=== PATIENT | male | born 1940 | race Caucasian/White ===

== ENCOUNTER 2016-11-13 08:37 | Day surgery (SDC) | payer BC, MEDICARE ==
[~2016-11-13 08:37] MED LIST: Acetaminophen TAB* 325 MG PO PRN; Buffered Lidocaine 0.9% SYRIN* 5 ML/SYR SYRINGE INTRADERM ONE; Ketorolac 0.5% OPHTH (NF) 0.5 % 5 ML BTL ONE
[2016-11-13] MEDS ORDERED: Buffered Lidocaine 0.9% SYRIN* 5 ML/SYR SYRINGE ONE (08:38)
[2016-11-13] MEDS ORDERED: Lidocaine 1% MPF* 2 ML VIAL ONE (08:38)
[2016-11-13] MEDS ORDERED: Povidone Iodine 5% OPTH* 30 ML BTL ONE (08:38)
[2016-11-13] MEDS ORDERED: Proparacaine 0.5% OPHTH.SOL* 15 ML BTL ONE (08:38)
[2016-11-13] MEDS ORDERED: Phenylephrine 2.5% OPTH.SOL* 2 ML BTL ONE (08:38)
[2016-11-13] MEDS ORDERED: Cyclopentolate 1% OPTH.SOL* 2 ML BTL ONE (08:38)
[2016-11-13] MEDS ORDERED: Neomycin/Polymy/Dex OPTH.SUSP* MAXITROL 0.1% 5 ML ONE (08:38)
[2016-11-13] MEDS ORDERED: acetaZOLAMIDE TAB* 250 MG ONE (08:38)
[2016-11-13] MEDS ORDERED: Midazolam* 1 MG/ML 2 ML VIAL (2 MG) ONE (10:27)
[2016-11-13 11:30] VITALS: BP 105/66
--- NOTE | 2016-11-13 11:44 | OP ---
DATE OF OPERATION: 11/13/2016. DATE OF : 1940. SURGEON: Jose Alejandro Peng M.D. PREOPERATIVE DIAGNOSIS: Cataract left eye. POSTOPERATIVE DIAGNOSIS: Cataract left eye. OPERATIVE PROCEDURE: Phacoemulsification left eye with IOL. PROCEDURE: The patient was brought to the operating room after being given 1/2% Alcaine with epinep hrine drops in the preoperative area. The eye was prepped and draped in the usual sterile fashion. Sterile drape and eyelid speculum were placed. Again, topical 1/2% Alcaine with epinephrine was gi radha. A paracentesis incision was made at the 3 o'clock position with the No.75 blade. Clear cornea incision 2.2 x 2.2-mm was created at the 6 o'clock position starting at the anterior limbus using t he 2.2-mm keratome. The anterior chamber was irrigated with 0.4 mL of 1% non-preservative intracame ral lidocaine and filled with DisCoVisc. A capsulorrhexis was completed using the cystotome and the Utrata forceps. Hydrodissection was performed with balanced salt solution. The lens nucleus was re moved with the Phacoemulsification handpiece without incident. Cortex was removed with the irrigati on-aspiration handpiece. The capsular bag was re-inflated using DisCoVisc and an [id number] implant was inserted with the shooter. The irrigation-aspiration handpiece was used to remove all residual DisCoVisc. The eye was refilled with balanced salt solution and the wound checked and found to be w atertight. Topical Maxitrol drops were given. [id number]/[facility] #: [id number]
== END 2016-11-13 11:38 | disposition home or self-care (01) ==
LOC: OREAST 08:37
PROVIDERS: ATTEND Specialist
DX: H25.12 Age-related nuclear cataract, left eye (principal); H43.813 Vitreous degeneration, bilateral; Z87.891 Personal history of nicotine dependence; J44.9 Chronic obstructive pulmonary disease, unspecified
CPT/HCPCS: A9270-GY; J2250; V2632

== ENCOUNTER 2016-11-18 09:15 | Day surgery (SDC) | payer BC, MEDICARE ==
[~2016-11-18 09:15] MED LIST changes: -Ketorolac 0.5% OPHTH (NF) 0.5 % 5 ML BTL ONE
[2016-11-18] MEDS ORDERED: Midazolam* 1 MG/ML 2 ML VIAL (2 MG) ONE (10:32)
[2016-11-18 11:22] VITALS: BP 100/69
[2016-11-18] MEDS ORDERED: Phenylephrine 2.5% OPTH.SOL* 2 ML BTL ONE (14:00)
[2016-11-18] MEDS ORDERED: Neomycin/Polymy/Dex OPTH.SUSP* MAXITROL 0.1% 5 ML ONE (14:00)
[2016-11-18] MEDS ORDERED: Buffered Lidocaine 0.9% SYRIN* 5 ML/SYR SYRINGE ONE (14:00)
[2016-11-18] MEDS ORDERED: Proparacaine 0.5% OPHTH.SOL* 15 ML BTL ONE (14:00)
[2016-11-18] MEDS ORDERED: Cyclopentolate 1% OPTH.SOL* 2 ML BTL ONE (14:00)
[2016-11-18] MEDS ORDERED: Ketorolac 0.5% OPHTH (NF) 0.5 % 5 ML BTL ONE (14:00)
[2016-11-18] MEDS ORDERED: acetaZOLAMIDE TAB* 250 MG ONE (14:00)
[2016-11-18] MEDS ORDERED: Povidone Iodine 5% OPTH* 30 ML BTL ONE (14:00)
[2016-11-18] MEDS ORDERED: Lidocaine 1% MPF* 2 ML VIAL ONE (14:00)
--- NOTE | 2016-11-18 23:34 | OP ---
DATE OF OPERATION: 11/18/16 - [facility] DATE OF : 36 SURGEON: Jose Alejandro Peng MD PREOPERATIVE DIAGNOSIS: Cataract, right eye. POSTOPERATIVE DIAGNOSIS: Cataract, right eye. OPERATIVE PROCEDURE: Phacoemulsification, right eye with IOL and CTR. DESCRIPTION OF PROCEDURE: The patient was brought to the operating room after being given 1/2% Alcaine with epinephrine drops in the preoperative area. The eye was prepped and draped in the usual sterile fashion. Sterile drape and eyelid speculum were placed. Again, topical 1/2% Alcaine with epinephrine was given. A paracentesis incision was made at the 9 o'clock position with the No.75 blade. Clear cornea incision 2.2 x 2.2-mm was created at the 12 o'clock position starting at the anterior limbus using the 2.2-mm keratome. The anterior chamber was irrigated with 0.4 mL of 1% non-preservative intracameral lidocaine and filled with DisCoVisc. A capsulorrhexis was completed using the cystotome and the Utrata forceps. Hydrodissection was performed with balanced salt solution. The lens nucleus was removed with the Phacoemulsification handpiece without incident. Cortex was removed with the irrigation-aspiration handpiece. The capsular bag was re-inflated using DisCoVisc and an [id number] implant was inserted with the shooter. The irrigation-aspiration handpiece was used to remove all residual DisCoVisc. The eye was refilled with balanced salt solution and the wound checked and found to be watertight. Topical Maxitrol drops were given. Of note, during the phacoemulsification, it was noticed that there was the 3 clock hours of zonular loss at the proximally 8 o'clock to 11 o'clock position. After the lens was inserted, an Kong [id number] capsular tension ring was inserted into the capsular bag to stabilize this are. Indication for complex cataract surgery zonular loss requiring capsular tension ring. [id number]/[facility] #: [id number] MTDD
== END 2016-11-18 11:14 | disposition home or self-care (01) ==
LOC: OREAST 09:15
PROVIDERS: ATTEND Specialist
DX: H25.11 Age-related nuclear cataract, right eye (principal); H43.813 Vitreous degeneration, bilateral; J44.9 Chronic obstructive pulmonary disease, unspecified
CPT/HCPCS: A9270-GY; J2250; V2632

== ENCOUNTER 2017-10-01 18:53 | Emergency (ER) | payer MEDICARE ==
[2017-10-01 19:08] VITALS: BP 135/75
--- NOTE | 2017-10-01 19:31 | UC ---
Headache HPI - HPI Summary HPI Summary: 3 DAYS OF HEAD PRESSURE AND EAR PAIN AND SLIGHT DIZZINESS. STATES HE FEELS LIKE HIS "EARS ARE GOING TO EXPLODE". DENIES CHEST PAIN, NAUSEA. ON ARRIVAL TO PT WAS VERY ANXIOUS, HAD FEVER, TACHCARDIA, TACHYPNEA AND WAS PURSED LIP BREATHING. O2SAT ON RA 95%. PLACED ON 2L O2 BY NC. TOOK AZITH FOR URI/ BRONCHITIS LAST WEEK. - History Of Current Complaint Stated Complaint: DIZZY,HEADACHE Time Seen by Provider: 10/01/17 18:58 Hx Obtained From: Patient Onset/Duration: Gradual Onset, Lasting Days, Still Present Onset Of Symptoms: Gradual Initially Headache Was: Moderate Currently Pain Is: Moderate Pain Intensity: 8 Pain Scale Used: 0-10 Numeric Timing: Constant Character: Throbbing, Pressure Location of Headache: Temporal Allevating Factor(s): Nothing Associated Signs And Symptoms: Positive: Dizziness, Fever. Negative: Nausea, Vomiting, Neck Pain, Decreased LOC - Allergies/Home Medications Allergies/Adverse Reactions: Allergies Allergy/AdvReac Type Severity Reaction Status Date / Time MERCURIC IODIDE Allergy Intermediate Rash Uncoded 10/01/17 19:17 PMH/Surg Hx/FS Hx/Imm Hx Endocrine History: Dyslipidemia Respiratory History: COPD GI/ History: Kidney Stones, Diverticulitis Cancer History: Prostate Cancer - Surgical History Surgical History: Yes Surgery Procedure, Year, and Place: PROSTATECTOMY 2003 [place]. SIGMOID COLON RESECTION 2012 [facility], LEFT INGUINAL HERNIA, T&A, TUMOR TO RIGHT PAROTID, LEFT ROTATOR CUFF REPAIR - Family History Known Family History: Negative: Hypertension - Social History Alcohol Use: Occasionally Alcohol Amount: 2 DRINKS/MONTH Substance Use Type: None Smoking Status (MU): Former Smoker Type: Cigarettes Amount Used/How Often: 1 PPD FOR 7 YRS Length of Time of Smoking/Using Tobacco: 7 YRS Have You Smoked in the Last Year: No When Did the Patient Quit Smoking/Using Tobacco: 1974 Review of Systems Constitutional: Fever ENT: Ear Ache Respiratory: Shortness Of Breath Cardiovascular: Negative Gastrointestinal: Negative Neurological: Headache All Other Systems Reviewed And Are Negative: Yes Physical Exam Triage Information Reviewed: Yes Appearance: No Pain Distress, Well-Nourished, Ill-Appearing - MILDLY Vital Signs: Initial Vital Signs Temp 100.5 F 10/01/17 18:57 Pulse 115 10/01/17 18:57 Resp 24 10/01/17 18:57 BP 135/75 10/01/17 18:57 Pulse Ox 97 10/01/17 18:57 Vital Signs Reviewed: Yes Eyes: Positive: Conjunctiva Clear ENT: Positive: Hearing grossly normal, Pharynx normal, TMs normal Neck: Positive: Supple, Nontender, No Lymphadenopathy Respiratory: Positive: Lungs clear, Decreased breath sounds, Other: - PURSED LIP BREATHING. Negative: Wheezing Cardiovascular: Positive: Tachycardia Abdomen Description: Positive: Nontender, Soft. Negative: Distended, Guarding Musculoskeletal: Positive: No Edema Neurological: Positive: Alert Psychological: Positive: Age Appropriate Behavior Skin: Negative: rashes Diagnostics - EKG Cardiac Rate: Tachycardia - 111BPM Cardiac Rhythm: Sinus: Normal Ectopy: None ST Segment: Normal Headache Course/Dx - Differential Dx/Diagnosis Provider Diagnoses: 1. FEVER, TACHYCARDIA, SOB. 2. EAR PAIN/HERRERA - Physician Notifications Discussed Patient Care With: Kurtis Hopson - TO [facility] [place] ED BY AMBULANCE Time Discussed With Above Provider: 19:30 Instructed by Provider To: MD Will See In ED Discharge - Sign-Out/Discharge Documenting (check all that apply): Patient Departure - Discharge Plan Condition: Guarded Disposition: TRANS HIGHER LVL OF CARE FAC Referrals: Willian Contreras MD [Medical Doctor] - - Billing Disposition and Condition Condition: GUARDED Disposition: Trans Higher Lvl of Care Fac
== END 2017-10-01 19:54 | disposition short-term general hospital (02) ==
LOC: UCEAST 18:53
DX: R50.9 Fever, unspecified (principal); R42 Dizziness and giddiness; R06.02 Shortness of breath; H92.03 Otalgia, bilateral; R51 Headache; J44.9 Chronic obstructive pulmonary disease, unspecified; R06.82 Tachypnea, not elsewhere classified; R00.0 Tachycardia, unspecified; Z91.09 Other allergy status, other than to drugs and biological substances; Z87.891 Personal history of nicotine dependence
CPT/HCPCS: 93005; 99213; G0463

== ENCOUNTER 2017-10-01 20:05 | Inpatient (IN) | payer MEDICARE ==
[2017-10-01] MEDS ORDERED: NS 0.9% 1000 ML*IV.FLUID IV ONE (20:26)
[2017-10-01] MEDS ORDERED: Albuterol/Ipratropium NEB.SOL* Albuterol 2.5 MG/Ipratropium 0.5 MG 3 ML INH ONE (20:29)
[2017-10-01] MEDS ORDERED: Acetaminophen TAB* 325 MG PO ONE (20:30)
--- NOTE | 2017-10-01 20:30 | ED ---
Complex/Multi-Sys Presentation - HPI Summary HPI Summary: This patient is a 77 year old M BIBA from [facility] to ED with a chief complaint of R temporal pain. The CC is described as aching. The patient rates the pain 10/ 10 in severity. Symptoms aggravated by nothing. Symptoms alleviated by nothing. Patient reports nausea, near LOC, bilateral temporal pain (yesterday), productive cough, SOB, and fever. Patient denies vomiting, light sensitivity, neck pain, and difficulty urinating. PMHx of COPD and PNA. The patient report he was dx with bronchitis earlier this week and was given a rx for zithromax which he reports he had a reaction to. He takes prednisone daily. - History Of Current Complaint Chief Complaint: EDEarPain Time Seen by Provider: 10/01/17 20:08 Hx Obtained From: Patient Onset/Duration: Sudden Onset, Lasting Hours, Still Present Timing: Constant, Hours Severity Currently: Severe - 10/10 Severity Initially: Severe - 10/10 Location: Pain At: - R temporal area Aggravating Factor(s): nothing Alleviating Factor(s): nothing Associated Signs And Symptoms: Positive: Other - Patient reports nausea, near LOC, bilateral temporal pain (yesterday), productive cough, SOB, and fever. Patient denies vomiting, light sensitivity, neck pain, and difficulty urinating. - Allergies/Home Medications Allergies/Adverse Reactions: Allergies Allergy/AdvReac Type Severity Reaction Status Date / Time MERCURIC IODIDE Allergy Intermediate Rash Uncoded 10/01/17 19:17 Home Medications: Home Medications Albuterol HFA INHALER* [Ventolin HFA Inhaler*] 2 puff INH Q6H PRN 10/01/17 [ History Confirmed 10/01/17] Ibuprofen/Diphenhydramine Cit [Advil Pm Caplet] 2 tab PO BEDTIME PRN 10/01/17 [ History Confirmed 10/01/17] Triazolam TAB* [Halcion TAB*] 0.25 mg PO BEDTIME PRN 10/01/17 [History Confirmed 10/01/17] PMH/Surg Hx/FS Hx/Imm Hx Respiratory History: Reports: Hx Chronic Obstructive Pulmonary Disease (COPD), Hx Pneumonia GI History: Reports: Other GI Disorders - HIGH CHOLESTEROL, HX DIVERTICULITIS, SIGMOID RESECTION History: Reports: Hx Kidney Stones - 1975, Other Problems/Disorders - PROSTATE CA, PROSTATECTOMY 2003 Musculoskeletal History: Reports: Hx Arthritis - HANDS Sensory History: Reports: Hx Cataracts - BILATERAL, Hx Contacts or Glasses - GLASSES, Hx Hearing Aid - BILATERAL Opthamlomology History: Reports: Hx Cataracts - BILATERAL, Hx Contacts or Glasses - GLASSES - Cancer History Hx Chemotherapy: No - Surgical History Surgery Procedure, Year, and Place: PROSTATECTOMY 2003 [place]. SIGMOID COLON RESECTION 2012 [facility], LEFT INGUINAL HERNIA, T&A, TUMOR TO RIGHT PAROTID, LEFT ROTATOR CUFF REPAIR Hx Anesthesia Reactions: No Infectious Disease History: No Infectious Disease History: Denies: Traveled Outside the [place] in Last 30 Days - Family History Known Family History: Negative: Hypertension - Social History Alcohol Use: Occasionally Alcohol Amount: 2 DRINKS/MONTH Substance Use Type: Reports: None Hx Tobacco Use: No Smoking Status (MU): Former Smoker Type: Cigarettes Amount Used/How Often: 1 PPD FOR 7 YRS Length of Time of Smoking/Using Tobacco: 7 YRS Have You Smoked in the Last Year: No Review of Systems Positive: Fever Eyes: Other - denies light sensitivity ENT: Other - denies neck pain Positive: Other - R temporal pain, bilateral temporal pain (yesterday) Positive: Shortness Of Breath, Cough - productive Positive: Nausea. Negative: Vomiting Positive: other - denies difficulty urinating Neurological: Other - near LOC All Other Systems Reviewed And Are Negative: Yes Physical Exam - Summary Physical Exam Summary: VITAL SIGNS: Reviewed. GENERAL: Patient is a well-developed and nourished MALE who is lying comfortable in the stretcher. Patient is not in any acute respiratory distress. HEAD AND FACE: No signs of trauma. No ecchymosis, hematomas or skull depressions. No sinus tenderness. No tenderness in temporal area bilaterally EYES: PERRLA, EOMI x 2, No injected conjunctiva, no nystagmus. EARS: Hearing grossly intact. Ear canals and tympanic membranes are within normal limits. MOUTH: Oropharynx within normal limits. NECK: Supple, trachea is midline, no adenopathy, no JVD, no carotid bruit, no c- spine tenderness, neck with full ROM. CHEST: Symmetric, no tenderness at palpation LUNGS: Decreased breath sounds bilaterally. No wheezing or crackles. CVS: Mildly tachycardic, Regular rhythm, S1 and S2 present, no murmurs or gallops appreciated. ABDOMEN: Soft, non-tender. No signs of distention. No rebound no guarding, and no masses palpated. Bowel sounds are normal. EXTREMITIES: FROM in all major joints, no edema, no cyanosis or clubbing. NEURO: Alert and oriented x 3. No acute neurological deficits. Speech is normal and follows commands. SKIN: Dry and warm Triage Information Reviewed: Yes Vital Signs On Initial Exam: Initial Vitals Temp Pulse Resp BP Pulse Ox 103.3 F 105 18 123/76 96 10/01/17 20:10 10/01/17 20:10 10/01/17 20:10 10/01/17 20:10 10/01/17 20:10 Vital Signs Reviewed: Yes Diagnostics - Vital Signs Vital Signs Temp Pulse Resp BP Pulse Ox 10/01/17 20:10 103.3 F 105 18 123/76 96 - Laboratory Result Diagrams: 10/01/17 19:30 10/01/17 19:30 Lab Statement: Any lab studies that have been ordered have been reviewed, and results considered in the medical decision making process. - Radiology CXR Radiology Interpretation Completed By: Radiologist - #. Stigmata of obstructive lung disease. No acute pulmonary or cardiac process evident. ED physician has reviewed this imaging report. Complex Multi-Symp Course/Dx Assessment/Plan: This patient is a 77 year old M BIBA from [facility] to ED with a chief complaint of R temporal pain. In the ED course, the patient was given Tylenol, albuterol, Levaquin, solu-medrol, and fluids. CXR reveals stigmata of obstructive lung disease. No acute pulmonary or cardiac process evident. Consulted Dr. Carson at 2201 who accepts the patient for admission. The patient is agreeable with this plan. - Diagnoses Differential Diagnoses/HQI/PQRI: Other - COPD and bronchitis Provider Diagnoses: COPD (chronic obstructive pulmonary disease), Bronchitis - Physician Notifications Discussed Care Of Patient With: Richie Carson Time Discussed With Above Provider: 22:01 Instructed by Provider To: Other - Consulted Dr. Carson at 2201 who accepts the patient for admission. Discharge - Sign-Out/Discharge Documenting (check all that apply): Patient Departure - Discharge Plan Condition: Stable Disposition: ADMITTED TO [facility] Referrals: Willian Contreras MD [Primary Care Provider] -
[2017-10-01] MEDS ORDERED: Levofloxacin 750 MG IVPREMIX(* 750 MG/150 ML BAG IVPB ONE (20:31)
[2017-10-01] MEDS ORDERED: methylPREDNISolone 125 MG* 2 ML VIAL IV ONE (20:31)
--- NOTE | 2017-10-01 20:59 | RAD ---
Indication: Headache, generalized illness. Question pneumonia. Chronic obstructive pulmonary disease. Comparison: September 23, 2017 chest radiograph. Technique: Upright AP 2047 hours Report: Elevated lung volumes and both diffuse mild prominence of the interstitial markings and patchy rarefaction of the mid to upper lung zone interstitial markings. No focal pulmonary lesion, compelling alveolar consolidation, pleural effusion, pneumothorax. The heart, pulmonary vasculature, and mediastinal contours are unremarkable. IMPRESSION: #. Stigmata of obstructive lung disease. No acute pulmonary or cardiac process evident.
[2017-10-01] MEDS ORDERED: Albuterol 2.5 MG/3 ML NEB.SOL* (0.083%) INH SCH (21:00)
[2017-10-01 21:13] LABS: ABS Basophils 0.1 10^3/ul (0-0.2); ABS Eosinophils 0.2 10^3/ul (0-0.6); ABS Lymphocytes 0.8 10^3/ul (1.0-4.8); ABS Monocytes 1.2 10^3/ul (0-0.8); ABS Neutrophils 10.7 10^3/ul (1.5-7.7); ABS Nucleated RBC 0 10^3/ul; Eosinophil % 1.3 % (0-6); Hematocrit 39 % (42-52); Hemoglobin 13.7 g/dl (14.0-18.0); Lymphocyte % 6.3 % (25-47); Mean Corpuscular HGB Conc 35 g/dl (31-36); Mean Corpuscular Hemoglobin 32 pg (27-31); Mean Corpuscular Volume 92 fL (80-94); Mean Platelet Volume 7.2 um3 (7.4-10.4); Nucleated Red Blood Cells % 0.1; Platelet Count 247 10^3/ul (150-450); Red Blood Count 4.24 10^6/ul (4.00-5.40); Red Cell Distribution Width 13 % (10.5-15)
[2017-10-01 21:22] LABS: INR 1.11 (0.77-1.02)
[2017-10-01] MEDS ORDERED: Ketorolac INJ* 30 MG/ML 1 ML VIAL IV PUSH ONE (21:48)
[2017-10-01 22:17] LABS: Urine Appearance Cloudy; Urine Blood Negative (Negative); Urine Color Yellow; Urine Ketones 2+ (Negative); Urine Protein 1+(30 mg/dL) (Negative); Urine Red Blood Cell Absent (Absent); Urine Specific Gravity 1.025 (1.010-1.030); Urine Urobilinogen Negative (Negative); Urine White Blood Cell Absent (Absent)
[2017-10-02] MEDS ORDERED: Acetaminophen TAB* 325 MG PO PRN (00:02)
[2017-10-02] MEDS ORDERED: Albuterol 2.5 MG/3 ML NEB.SOL* (0.083%) INH PRN (00:02)
[2017-10-02] MEDS ORDERED: Ondansetron ODT TAB* 4 MG PO PRN (00:09)
--- NOTE | 2017-10-02 00:11 | HP ---
H&P (Free Text) History and Physical: PCP: Latoya Contreras MD Date/Time: 10/01/2017 4111 CC: cough, congestion HPI: Mr Ogden is a very pleasant 77YO white male HX COPD & HLD who presents with a 2 week HX of cough, congestion, pale yellow phlegm production, and headache for which his PCP had prescribed azithromycin without improvement prompting him to present tonight. He denies chest pain, SOB, F/C, N/V/D, rash, or other issues. PMedHx COPD HLD insomnia Ambulatory Orders Atorvastatin* [Lipitor*] 10 mg PO QPM 11/11/16 Budesonide/Formote 160/4.5(NF) [Symbicort 160/4.5 (NF)] 2 puff INH BID 11/11/16 Tiotropium CAP.INH* [Spiriva CAP.INH*] 1 cap.inh INH BID 11/11/16 Albuterol HFA INHALER* [Ventolin HFA Inhaler*] 2 puff INH Q6H PRN 10/01/17 Ibuprofen/Diphenhydramine Cit [Advil Pm Caplet] 2 tab PO BEDTIME PRN 10/01/17 Triazolam TAB* [Halcion TAB*] 0.25 mg PO BEDTIME PRN 10/01/17 Allergies MERCURIC IODIDE Allergy (Intermediate, Uncoded 10/01/17 19:17) Rash PSurgHx OU cataract extractions prostatectomy sigmoid resection for diverticulitis benign parotid tumor excision tonsillectomy B inguinal hernia repairs L rotator cuff repair SocHx: minimal tobacco HX, minimal alcohol, 2 bowls of marijuana daily, no other recreational drugs; lives with his significant other; 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 Father passed from complications of dementia at 89. Brother passed of CAD at 65. ROS: as above, otherwise reviewed and all were negative vitals: Vital Signs Temp 39.6 C 10/01/17 20:10 Pulse 86 10/01/17 23:42 Resp 18 10/01/17 21:12 BP 122/86 10/01/17 23:42 Pulse Ox 96 10/01/17 23:42 Intake & Output 10/01/17 10/01/17 10/02/17 11:59 23:59 11:59 Weight 58.967 kg Constitutional: NAD, normally developed, well-nourished elderly white male HEENM: atraumatic; sclera/conjunctiva: anicteric/clear; hearing: clinically intact; oropharynx: clear, mucosa moist Neck: soft tissue: non-tender; thyroid: normal Pulmonary: diminished B, fair aeration, no accessory muscle use CV: RR/RR, normal S1S2, no carotid bruit, no jugular venous distention, 2+ B DP/ PT, no edema Abdominal: soft, non-distended, non-tender, no rebound/guarding/rigidity, normoactive bowel sounds, no hepatosplenomegaly or masses, no costovertebral angle tenderness Musculoskeletal: general: grossly intact, non-tender Integumental: no lesion or open wounds noted Psychiatric orientation: AA&O to PPS affect: calm mood: pleasant eye contact: good content: sharp, reliable memory: intact responses: timely insight: very good Testing: Lab Results 10/01/17 10/01/17 10/01/17 Range/Units 19:30 19:30 19:30 WBC 13.0 H (3.5-10.8) 10^3/ul RBC 4.24 (4.00-5.40) 10^6/ul Hgb 13.7 L (14.0-18.0) g/dl Hct 39 L (42-52) % MCV 92 (80-94) fL MCH 32 H (27-31) pg MCHC 35 (31-36) g/dl RDW 13 (10.5-15) % Plt Count 247 (150-450) 10^3/ul MPV 7.2 L (7.4-10.4) um3 Neut % (Auto) 82.2 (38-83) % Lymph % (Auto) 6.3 L (25-47) % Oliver % (Auto) 9.5 H (0-7) % Eos % (Auto) 1.3 (0-6) % Baso % (Auto) 0.7 (0-2) % Absolute Neuts (auto) 10.7 H (1.5-7.7) 10^3/ul Absolute Lymphs (auto) 0.8 L (1.0-4.8) 10^3/ul Absolute Monos (auto) 1.2 H (0-0.8) 10^3/ul Absolute Eos (auto) 0.2 (0-0.6) 10^3/ul Absolute Basos (auto) 0.1 (0-0.2) 10^3/ul Absolute Nucleated RBC 0 10^3/ul Nucleated RBC % 0.1 INR (Anticoag Therapy) 1.11 H (0.77-1.02) APTT 30.3 (26.0-36.3) seconds Sodium 133 L (135-145) mmol/L Potassium 3.9 (3.5-5.0) mmol/L Chloride 99 L (101-111) mmol/L Carbon Dioxide 23 (22-32) mmol/L Anion Gap 11 (2-11) mmol/L BUN 17 (6-24) mg/dL Creatinine 0.71 (0.67-1.17) mg/dL Est GFR ( Amer) 129.5 (>60) Est GFR (Non-Af Amer) 107.0 (>60) BUN/Creatinine Ratio 23.9 H (8-20) Glucose 199 H (70-100) mg/dL Lactic Acid (0.5-2.0) mmol/L Calcium 9.0 (8.6-10.3) mg/dL Total Bilirubin 0.90 (0.2-1.0) mg/dL AST 26 (13-39) U/L ALT 25 (7-52) U/L Alkaline Phosphatase 91 (34-104) U/L Troponin I 0.02 (<0.04) ng/mL C-Reactive Protein 151.95 H (<8.01) mg/L B-Natriuretic Peptide ( - 100) pg/mL Total Protein 6.7 (6.4-8.9) g/dL Albumin 3.5 (3.2-5.2) g/dL Globulin 3.2 (2-4) g/dL Albumin/Globulin Ratio 1.1 (1-3) Urine Color Urine Appearance Urine pH (5-9) Ur Specific [place] (1.010-1.030) Urine Protein (Negative) Urine Ketones (Negative) Urine Blood (Negative) Urine Nitrate (Negative) Urine Bilirubin (Negative) Urine Urobilinogen (Negative) Ur Leukocyte Esterase (Negative) Urine WBC (Auto) (Absent) Urine RBC (Auto) (Absent) Urine Bacteria (Absent) Hyaline Casts (Absent) Urine Glucose (Negative) 10/01/17 10/01/17 10/01/17 Range/Units 19:30 21:12 21:55 WBC (3.5-10.8) 10^3/ul RBC (4.00-5.40) 10^6/ul Hgb (14.0-18.0) g/dl Hct (42-52) % MCV (80-94) fL MCH (27-31) pg MCHC (31-36) g/dl RDW (10.5-15) % Plt Count (150-450) 10^3/ul MPV (7.4-10.4) um3 Neut % (Auto) (38-83) % Lymph % (Auto) (25-47) % Oliver % (Auto) (0-7) % Eos % (Auto) (0-6) % Baso % (Auto) (0-2) % Absolute Neuts (auto) (1.5-7.7) 10^3/ul Absolute Lymphs (auto) (1.0-4.8) 10^3/ul Absolute Monos (auto) (0-0.8) 10^3/ul Absolute Eos (auto) (0-0.6) 10^3/ul Absolute Basos (auto) (0-0.2) 10^3/ul Absolute Nucleated RBC 10^3/ul Nucleated RBC % INR (Anticoag Therapy) (0.77-1.02) APTT (26.0-36.3) seconds Sodium (135-145) mmol/L Potassium (3.5-5.0) mmol/L Chloride (101-111) mmol/L Carbon Dioxide (22-32) mmol/L Anion Gap (2-11) mmol/L BUN (6-24) mg/dL Creatinine (0.67-1.17) mg/dL Est GFR ( Amer) (>60) Est GFR (Non-Af Amer) (>60) BUN/Creatinine Ratio (8-20) Glucose (70-100) mg/dL Lactic Acid 1.1 (0.5-2.0) mmol/L Calcium (8.6-10.3) mg/dL Total Bilirubin (0.2-1.0) mg/dL AST (13-39) U/L ALT (7-52) U/L Alkaline Phosphatase (34-104) U/L Troponin I (<0.04) ng/mL C-Reactive Protein (<8.01) mg/L B-Natriuretic Peptide 71 ( - 100) pg/mL Total Protein (6.4-8.9) g/dL Albumin (3.2-5.2) g/dL Globulin (2-4) g/dL Albumin/Globulin Ratio (1-3) Urine Color Yellow Urine Appearance Cloudy Urine pH 5.0 (5-9) Ur Specific [place] 1.025 (1.010-1.030) Urine Protein 1+(30 mg/dl) A (Negative) Urine Ketones 2+ A (Negative) Urine Blood Negative (Negative) Urine Nitrate Negative (Negative) Urine Bilirubin Negative (Negative) Urine Urobilinogen Negative (Negative) Ur Leukocyte Esterase Negative (Negative) Urine WBC (Auto) Absent (Absent) Urine RBC (Auto) Absent (Absent) Urine Bacteria Absent (Absent) Hyaline Casts Present A (Absent) Urine Glucose Negative (Negative) CXR, personally reviewed: IMPRESSION: #. Stigmata of obstructive lung disease. No acute pulmonary or cardiac process evident. Impression: 77M HX COPD, HLD presents with SIRS 2nd COPD exacerbation & bronchitis DIAGNOSIS & PLAN Primary SIRS 2nd COPD exacerbation & bronchitis : IV levofloxacin : IVFs : blood & sputum CXs : supplemental oxygen : albuterol nebs : mometasone/formoterol : tiotropium : IV methylprednisolone : guaifenesin : supplemental oxygen : supportive care Secondary HLD : continue atorvastatin Admission Rational: observation for COPD exacerbation DVTp: heparin SQ Code Status: full HCP: daughter, Carol Mathew
[2017-10-02] MEDS ORDERED: Spiriva Inhaler DEVICE* 1 EACH DEVICE SCH (01:00)
[2017-10-02] MEDS ORDERED: Albuterol 2.5 MG/3 ML NEB.SOL* (0.083%) INH SCH (01:00)
[2017-10-02] MEDS: Triazolam TAB* 0.25 MG PO PRN ×2 (01:30→23:58)
[2017-10-02] MEDS: Heparin VIAL(*) 5000 UNITS/ML VIAL (FIVE THOUSAND) SUBCUT SCH ×3 (05:37→21:28)
[2017-10-02] MEDS: Omeprazole CAP* 20 MG PO SCH (05:37)
[2017-10-02 06:26] LABS: ABS Basophils 0 10^3/ul (0-0.2); ABS Eosinophils 0 10^3/ul (0-0.6); ABS Lymphocytes 0.9 10^3/ul (1.0-4.8); ABS Monocytes 0.2 10^3/ul (0-0.8); ABS Neutrophils 7.4 10^3/ul (1.5-7.7); ABS Nucleated RBC 0 10^3/ul; Eosinophil % 0.1 % (0-6); Hematocrit 38 % (42-52); Hemoglobin 13.4 g/dl (14.0-18.0); Lymphocyte % 10.3 % (25-47); Mean Corpuscular HGB Conc 35 g/dl (31-36); Mean Corpuscular Hemoglobin 32 pg (27-31); Mean Corpuscular Volume 92 fL (80-94); Mean Platelet Volume 6.8 um3 (7.4-10.4); Nucleated Red Blood Cells % 0.1; Platelet Count 229 10^3/ul (150-450); Red Blood Count 4.14 10^6/ul (4.00-5.40); Red Cell Distribution Width 13 % (10.5-15); White Blood Count 8.5 10^3/ul (3.5-10.8)
[2017-10-02] MEDS: Tiotropium CAP.INH* CAP.INH/18 MCG (USE ORDER SET !) INH SCH (08:19)
[2017-10-02] MEDS: Mometasone/Formoter 200/5 MDI INH SCH ×2 (08:19→20:34)
[2017-10-02] MEDS ORDERED: Tiotropium CAP.INH* CAP.INH/18 MCG (USE ORDER SET !) INH SCH (09:00)
[2017-10-02] MEDS: guaiFENesin ER TAB 600 MG PO SCH ×2 (09:15→21:28)
[2017-10-02] MEDS: Docusate CAP* 100 MG PO SCH ×2 (09:15→21:28)
--- NOTE | 2017-10-02 10:24 | PN ---
Subjective Date of Service: 10/02/17 Interval History: pt feels well. still a little bit weak. His sputum color changed from green to yellow. Less cough noted Objective Active Medications: Acetaminophen (Tylenol Tab*) 650 mg PO Q6H PRN PRN Reason: FEVER/PAIN Albuterol (Ventolin 2.5 Mg/3 Ml Neb.Mignon*) 2.5 mg INH Q2H PRN PRN Reason: SOB/WHEEZING Atorvastatin Calcium (Lipitor*) 10 mg PO QPM [facility] Device (Tiotropium Inhaler Device*) 1 each .SEE ORDER .USE w/ SPIRIVA CAPS [facility] Docusate Sodium (Colace Cap*) 100 mg PO BID [facility] Last Admin: 10/02/17 09:15 Dose: 100 mg Guaifenesin (Mucinex*) 1,200 mg PO BID [facility] Last Admin: 10/02/17 09:15 Dose: 1,200 mg Heparin Sodium (Porcine) (Heparin Vial(*)) 5,000 units SUBCUT Q8HR [facility] Last Admin: 10/02/17 05:37 Dose: 5,000 units Levofloxacin (Levaquin Tab*) 500 mg PO Q24H [facility] Mometasone Furoate/Formoterol Fumar (Dulera 200/5 Mdi*) 2 puff INH BID [facility] Last Admin: 10/02/17 08:19 Dose: 2 puff Omeprazole (Prilosec Cap*) 20 mg PO DAILY@0600 [facility] Last Admin: 10/02/17 05:37 Dose: 20 mg Ondansetron HCl (Zofran Odt Tab*) 4 mg PO Q6H PRN PRN Reason: n/v Tiotropium Aurora (Spiriva Cap.Inh*) 1 cap INH DAILY [facility] Last Admin: 10/02/17 08:19 Dose: 1 cap Triazolam (Halcion Tab*) 0.25 mg PO BEDTIME PRN PRN Reason: SLEEP Last Admin: 10/02/17 01:30 Dose: 0.25 mg Vital Signs - 8 hr 10/02/17 10/02/17 10/02/17 07:26 08:00 08:25 Temperature 97.9 F Pulse Rate 74 Respiratory 18 15 14 Rate Blood Pressure 107/60 (mmHg) O2 Sat by Pulse 97 Oximetry Oxygen Devices in Use Now: None Appearance: 77 yo M in NAD, aAOx3 Eyes: No Scleral Icterus, PERRLA Ears/Nose/Mouth/Throat: NL Teeth, Lips, Gums, Mucous Membranes Moist Neck: NL Appearance and Movements; NL JVP, Trachea Midline Respiratory: Symmetrical Chest Expansion and Respiratory Effort, - - mild rhonchi RLL Cardiovascular: NL Sounds; No Murmurs; No JVD, No Edema Abdominal: NL Sounds; No Tenderness; No Distention Lymphatic: No Cervical Adenopathy Extremities: No Edema, No Clubbing, Cyanosis Skin: No Rash or Ulcers, No Nodules or Sclerosis Neurological: Alert and Oriented x 3, NL Muscle Strength and Tone Result Diagrams: 10/02/17 06:07 10/01/17 19:30 Assess/Plan/Problems-Billing Assessment: 77 yo M with h/o COPD presents with exacerbation and fever of 103 - Patient Problems (1) COPD exacerbation Comment: with acute likely bacterial bronachitis. cont Levaquin Switch Solu Medrol to Prednisone Encourage ambulation, due to generalized weakness and markedly elecated temp last night will cont to monitor x 24 H (2) DVT prophylaxis Comment: HSQ Status and Disposition: inpatient
[2017-10-02] MEDS ORDERED: Atorvastatin* 10 MG TAB PO SCH (18:00)
[2017-10-02] MEDS ORDERED: Levofloxacin TAB* 500 MG PO SCH (22:00)
[2017-10-03] MEDS: Heparin VIAL(*) 5000 UNITS/ML VIAL (FIVE THOUSAND) SUBCUT SCH (05:44)
[2017-10-03] MEDS: Omeprazole CAP* 20 MG PO SCH (05:44)
[2017-10-03] MEDS ORDERED: methylPREDNISolone SOD 40 MG* 1 ML VIAL IV SCH (06:00)
[2017-10-03 06:18] LABS: ABS Basophils 0.2 10^3/ul (0-0.2); ABS Eosinophils 0.1 10^3/ul (0-0.6); ABS Monocytes 0.8 10^3/ul (0-0.8); ABS Neutrophils 11.3 10^3/ul (1.5-7.7); ABS Nucleated RBC 0 10^3/ul; Hematocrit 37 % (42-52); Hemoglobin 13.1 g/dl (14.0-18.0); Lymphocyte % 19.3 % (25-47); Mean Corpuscular HGB Conc 35 g/dl (31-36); Mean Corpuscular Hemoglobin 32 pg (27-31); Mean Corpuscular Volume 92 fL (80-94); Mean Platelet Volume 6.6 um3 (7.4-10.4); Nucleated Red Blood Cells % 0; Platelet Count 285 10^3/ul (150-450); Red Blood Count 4.08 10^6/ul (4.00-5.40); Red Cell Distribution Width 13 % (10.5-15); White Blood Count 15.4 10^3/ul (3.5-10.8)
[2017-10-03] MEDS: Mometasone/Formoter 200/5 MDI INH SCH (07:25)
[2017-10-03] MEDS: Tiotropium CAP.INH* CAP.INH/18 MCG (USE ORDER SET !) INH SCH (07:25)
[2017-10-03] MEDS: Docusate CAP* 100 MG PO SCH (08:35)
[2017-10-03] MEDS: guaiFENesin ER TAB 600 MG PO SCH (08:35)
[2017-10-03] MEDS ORDERED: predniSONE TAB* 50 MG PO SCH (09:00)
[2017-10-03 11:40] VITALS: BP 133/58
--- NOTE | 2017-10-03 14:38 | DS ---
CC: Dr. Willian Contreras * DISCHARGE SUMMARY: DATE OF ADMISSION: 10/01/17 DATE OF DISCHARGE: 10/03/17 PRIMARY CARE PROVIDER: Dr. Willian Contreras. DISCHARGE DIAGNOSES: 1. Acute chronic obstructive pulmonary disease exacerbation. 2. Acute bacteria bronchitis. MEDICATIONS AT DISCHARGE: 1. Albuterol inhaler two puffs every six hours p.r.n. 2. Lipitor 10 mg daily. 3. Symbicort 160/4.5 one puff inhalation b.i.d. 4. Advil PM two tablets at bedtime p.r.n. 5. Spiriva one inhalation b.i.d. 6. Halcion 0.25 at bedtime. 7. Levaquin 500 mg daily. 8. Prednisone 50 mg daily. Levaquin is going to be for another 5 days and prednisone for another 3 days and stop. LABORATORY DATA AND STUDIES PERFORMED DURING THE HOSPITAL STAY: Included: On 10/03/17, patient's C-reactive protein was down to 69 from 151 at admission. On 10/03/17, white blood cell count of 15.4, hemoglobin of 13.1, hematocrit of 37, and platelets of 285. Patient's portable chest x-ray, impression: "Stigmata of obstructive lung disease. No acute pulmonary or cardiac process evident." HOSPITALIZATION COURSE: Michelet Ogden is a 77-year-old male with history of recent problems with bronchitis for which he was treated with azithromycin as outpatient, who presented to the hospital with cough, congestion and temperature of 103 degrees. He also complained of green sputum production. Patient was placed on Levaquin with good results. The patient's fever resolved and his breathing is much improved. His sputum is becoming clear. He is going to be discharged with continuation of Levaquin for a total of 7 days and prednisone for total of 5 days. PHYSICAL EXAM AT THE TIME OF DISCHARGE: Blood pressure of 117/74, heart rate of 71 and regular, respiratory rate 17, oxygen saturation 97% on room air, temperature 97.6. General: The patient is a very pleasant 77-year-old male who is in no acute distress. Alert, awake, and oriented x3. HEENT: Head: Atraumatic, normocephalic. Eyes: Pupils are equal, reactive to light and accommodation. Oropharynx is clear. Mucosa moist. Neck: Supple. No JVD. No bruits bilaterally. Cardiovascular: Regular rate and rhythm. No murmur. Respiratory: Clear to auscultation bilaterally. Abdomen: Soft, nontender, bowel sounds present in all 4 quadrants. Extremities: There is no edema. Pulses +2 bilaterally. No clubbing or cyanosis. Neuro Evaluation: Speech clear. Cranial nerves II through XII grossly intact. Motor strength is 5/5 bilaterally. FOLLOWUP: At discharge, the patient is recommended to follow up with his primary care provider in approximately four to seven days. Please note that this is a short summary of the patient's hospitalization. Please refer to further medical records for details. TIME SPENT: Approximately 45 minutes was spent on the patient's discharge. [id number]/CPS #: [id number] MTDD
== END 2017-10-03 13:10 | disposition home or self-care (01) | DRG 202 ==
LOC: ED 20:05 → MED 23:25 → OBSVTOIN 10-02 15:33
PROVIDERS: ADMIT Hospitalist; ATTEND Internal Medicine
DX: J20.8 Acute bronchitis due to other specified organisms (principal); J44.1 Chronic obstructive pulmonary disease with (acute) exacerbation; J44.0 Chronic obstructive pulmonary disease with (acute) lower respiratory infection; E78.5 Hyperlipidemia, unspecified; G47.00 Insomnia, unspecified; Z90.79 Acquired absence of other genital organ(s); Z90.49 Acquired absence of other specified parts of digestive tract; Z72.89 Other problems related to lifestyle; Z82.49 Family history of ischemic heart disease and other diseases of the circulatory system; Z91.041 Radiographic dye allergy status; Z85.46 Personal history of malignant neoplasm of prostate; Z87.442 Personal history of urinary calculi; Z87.01 Personal history of pneumonia (recurrent); Z98.42 Cataract extraction status, left eye; Z98.41 Cataract extraction status, right eye; Z87.891 Personal history of nicotine dependence
CPT/HCPCS: 36415; 71045; 80053; 81003; 81015; 83605; 83880; 84484; 85025; 85610; 85730; 86140; 87040; 93005; 94640; 99213; 99284; A9270-GY; G0463; J1644; J1885; J2930; J7512